=== PATIENT | male | born 1980 | race Caucasian/White ===

== ENCOUNTER 2023-04-15 20:38 | Observation (INO) ==
[2023-04-15] MEDS ORDERED: NS 0.9% 1000 ml BAG 1,000 ML IV ONE (20:51)
[2023-04-15 21:05] LABS: ABS Eosinophils 0.5 10^3/uL (0.0-0.5); ABS Lymphocytes 2.6 10^3/uL (1.0-4.8); ABS Monocytes 0.6 10^3/uL (0.0-1.1); ABS Neutrophils 3.3 10^3/uL (1.5-7.6); ABS Nucleated RBC 0.01 10^3/ul; Hematocrit 39.9 % (38-53); Hemoglobin 13.6 g/dL (13.2-16.3); Lymphocyte % 37.3 %; Mean Corpuscular Hemoglobin 30.4 pg (27-33); Mean Corpuscular Hgb Conc 34.2 g/dL (31-36); Mean Platelet Volume 7.9 fL (7.5-11.2); Nucleated Red Blood Cells % 0.1 /100 WBC (0.0-0.4); Platelet Count 216 10^3/uL (150-450); Red Blood Count 4.48 10^6/uL (4.06-5.63); Red Cell Distribution Width 13.2 % (12-17); White Blood Count 7.1 10^3/uL (3.6-10.2)
[2023-04-15 21:13] LABS: INR 1.18 (0.88-1.18)
[2023-04-15 21:22] LABS: ALT 16 U/L (7-52); AST 19 U/L (13-39); Albumin 3.8 g/dL (3.2-5.2); Albumin/Globulin Ratio 1.4 (1-3); Alkaline Phosphatase 71 U/L (35-149); Anion Gap 7 mmol/L (2-16); Blood Urea Nitrogen 19 mg/dL (6-24); CO2 Carbon Dioxide 25 mmol/L (22-32); Calcium 8.8 mg/dL (8.6-10.3); Chloride 104 mmol/L (101-111); Globulin 2.8 g/dL (2-4); Glucose 113 mg/dL (70-100); Magnesium 1.8 mg/dL (1.9-2.7); Potassium 3.8 mmol/L (3.5-5.0); Sodium 136 mmol/L (135-145); Total Protein 6.6 g/dL (6.4-8.9); eGFR CKD-EPI 95.8 (>60)
[2023-04-15 21:27] LABS: Alcohol, S < 13 mg/dL (<13)
[2023-04-15 21:29] LABS: High Sens Troponin Baseline < 3 pg/mL (<20)
[2023-04-15 21:43] LABS: TSH Ultra Thyroid Stim Horm 2.58 mcIU/mL (0.34-5.60)
[2023-04-15] MEDS ORDERED: Iohexol 350 (CONTRAST) 500 ML MDV IV ONE (22:38)
[2023-04-15 22:59] LABS: High Sensitivity Troponin 1 Hr 3 pg/mL (<20)
[2023-04-16 00:03] LABS: Urine Benzodiazepine Screen None Detected (None Detect); Urine Cannabinoids Screen None Detected (None Detect); Urine Opiates Screen None Detected (None Detect)
[2023-04-16] MEDS ORDERED: Magnesium Sulfate 2 gm BAG 2 GM/50 ML BAG IVPB ONE (01:26)
[2023-04-16] MEDS ORDERED: Enoxaparin 40 MG/0.4 ML SYR SUBCUT SCH (03:00)
[2023-04-16 03:50] LABS: C Reactive Protein 6.69 mg/L (<8.01)
[2023-04-16] MEDS: Sodium Chloride(INHALANT) 7% 4 ML NEB.SOLN INH SCH (12:30)
[2023-04-16 15:12] LABS: HIV 4th Generation Nonreactive (Nonreactive)
[2023-04-17] MEDS: Sodium Chloride(INHALANT) 7% 4 ML NEB.SOLN INH SCH (07:14)
[2023-04-17 07:25] LABS: Calcium 8.9 mg/dL (8.6-10.3); Magnesium 1.9 mg/dL (1.9-2.7)
[2023-04-17 07:31] LABS: Creatinine, Serum 0.94 mg/dL (0.67-1.17); eGFR CKD-EPI 103.2 (>60)
[2023-04-17] MEDS ORDERED: Sodium Chloride(INHALANT) 7% 4 ML NEB.SOLN INH ONE (16:30)
[2023-04-17 17:53] VITALS: BP 121/77
[2023-04-18 14:22] LABS: TB1 Ag minus Nil Result -0.01 IU/mL; TB2 Ag minus Nil Result 0.01 IU/mL
[2023-04-18 14:44] LABS: QuantiferonTb Gold Plus Result Negative (Negative)
== END 2023-04-17 17:49 | disposition home or self-care (01) ==
LOC: ED 20:38 → EDHOLD 20:38 → SUATTDRO 04-16 01:35 → MEDTELE 04-16 03:09
PROVIDERS: ADMIT Hospitalist; ATTEND Internal Medicine